=== PATIENT | male | born 1955 | race Caucasian/White ===

== ENCOUNTER 2020-01-11 18:10 | Emergency (ER) | payer BC, OTHER ==
[~2020-01-11] VITALS: Ht 172.7 cm; Wt 120.2 kg
[~2020-01-11 18:10] MED LIST: ATORVASTATIN CA40 MG PO; DIOVAN160 MG PO; HYDROCHLOROTHIA25 M2 PO; IRON325 PO; KEFLEX500 MG PO; LIPITOR20 MG PO; LOVAZA1000 MG PO; MULTIVITAMINS PO; PLAVIX 75 MG TA75 M1 PO; PLAVIX 75 MG TA75 MG PO; PRILOSEC 20 MG20 MG PO; TRICOR145 MG PO
[2020-01-11 19:37] LABS: ABSOLUTE NEUTROPHILS 7.3 thou/uL (1.4-8.2); BASOPHILS 0.3 % (0.0-2.0); EOSINOPHILS 1.5 % (0.0-3.0); HEMATOCRIT 48.1 % (42.0-52.0); HEMOGLOBIN 16.8 gm/dL (14.0-18.0); LYMPHOCYTES 6.4 % (24.0-44.0); MCH 31.4 pg (26.0-34.0); MCHC 34.8 g/dL (28.0-37.0); MONOCYTES 10.7 % (1.0-8.0); PLATELET COUNT 276 thou/uL (150-400); POLYS 81.1 % (36.0-66.0); RBC 5.35 mil/uL (4.50-6.00); RDW 13.7 % (10.5-14.5)
[2020-01-11 19:53] LABS: CALCIUM 9.1 mg/dL (8.5-10.1); CREATININE 1.1 mg/dL (0.7-1.3); MAGNESIUM 2.1 mg/dL (1.8-2.4)
[2020-01-11 19:57] LABS: POTASSIUM 2.7 mmol/L (3.5-5.1)
[2020-01-11 23:28] VITALS: BP 119/79
--- NOTE | 2020-01-12 10:20 | EKG ---
[facility] [place] [address] ELECTROCARDIOGRAM REPORT Name: DOMENICO HENDERSON Room #: DEP [facility]#: [id number] Admission: 01/11/20 Attend Phys: Discharge: 01/11/20 Date of : 57 Report #: [id number] THIS REPORT FOR: cc: Uche Williamson MD, Kirk D. MD Lundgren, Craig H. MD [facility] THIS REPORT FOR: //name// [facility] ED Test Date: 2020-01-11 Test Time: 19:16:32 Pat Name: DOMENICO HENDERSON Department: Room: Gender: Telecommunications Professional: MIHIR : 1955 Requested By: Renato Ty Order Number: [id number] MD: Jason Davis Measurements Intervals Blum Rate: 70 P: 26 OK: 178 QRS: -20 QRSD: 92 T: 17 QT: 440 QTc: 475 Interpretive Statements Sinus rhythm Inferior infarct, old Compared to ECG 10/09/2014 06:28:47 No significant changes Electronically Signed On 01-12-2020 10:19:45 [employer] by Jason Davis [email or web address] <ELECTRONICALLY SIGNED> By: Jason Davis MD, FACC 01/12/20 [id number] Jason Davis MD, [facility] /EPI
== END 2020-01-11 23:12 | disposition home or self-care (01) ==
LOC: ER 18:10
PROVIDERS: Emergency Medicine
DX: E87.6 Hypokalemia (principal); R19.7 Diarrhea, unspecified; I10 Essential (primary) hypertension; Z86.73 Personal history of transient ischemic attack (TIA), and cerebral infarction without residual deficits